=== PATIENT | male | born 1960 | race Caucasian/White ===

== ENCOUNTER 2024-03-17 21:54 | Inpatient (IN) | payer OTHER ==
[~2024-03-17] VITALS: Ht 172.7 cm; Wt 117.9 kg
[2024-03-17] MEDS ORDERED: TETANUS, DIPHTHERIA, PERTUSSIS VAC/PF 0.5ML (>10YR OLD) IM ONE (22:30)
[2024-03-18] VITALS (62 sets, daily range): BP systolic 120–168; BP diastolic 67–104; PULSE 61–88; RESP 15–30; TEMP 36.61404–37.2252; O2SAT 90–99
[2024-03-18] MEDS ORDERED: NICARDIPINE 40MG/200ML PREMIX 200 ML IV PRN (00:15)
[2024-03-18 00:36] LABS: BASOPHILS % 0.3 % (0.0-2.0); EOSINOPHILS % 0.1 % (0.0-5.0); HEMATOCRIT. 41.3 % (42.0-52.0); HEMOGLOBIN. 14.2 g/dL (14.0-18.0); LYMPHOCYTES % 7.2 % (20.0-50.0); MEAN CORPUSCULAR HEMOGLOBIN 29.5 pg (28.0-32.0); MEAN CORPUSCULAR HGB CONC 34.4 g/dL (31.0-37.0); MEAN CORPUSCULAR VOLUME 85.8 fL (80.0-94.0); MEAN PLATELET VOLUME 8.8 fl (7.4-10.4); NEUTROPHILS % 86.4 % (40.0-76.0); PLATELET 159 x1000/uL (130-400); RED BLOOD CELL COUNT 4.81 mill/uL (4.7-6.1); RED CELL DISTRIBUTION WIDTH 13.5 % (11.6-14.6); WHITE BLOOD COUNT 12.6 x1000/uL (4.5-11.0)
[2024-03-18 00:39] LABS: CHLORIDE 99 mEq/L (98-107); POTASSIUM 3.8 mEq/L (3.5-5.1); SODIUM 131 mEq/L (136-145)
[2024-03-18 00:40] LABS: CARBON DIOXIDE 25 mEq/L (21-32)
[2024-03-18 00:41] LABS: CALCIUM 8.6 mg/dL (8.7-10.4)
[2024-03-18 00:44] LABS: INR 0.9; PROTHROMBIN TIME 10.3 sec (9.6-11.0)
[2024-03-18 00:45] LABS: CREATININE 0.8 mg/dL (0.6-1.3); GLUCOSE 207 mg/dL (70-105)
[2024-03-18 00:46] LABS: ETHANOL BLOOD 225 mg/dL (<10); UREA NITROGEN BLOOD 12 mg/dL (9-23)
[2024-03-18 00:47] LABS: TROPONIN I HIGH SENSITIVITY 8 ng/L (3.0-53)
[2024-03-18] MEDS: ACETAMINOPHEN 325MG TABLET PO ONE (00:48)
[2024-03-18] MEDS ORDERED: MAGNESIUM/ALUMINUM HYDROXIDE/SIMETHICONE 30ML UDC PO PRN (01:15)
[2024-03-18] MEDS ORDERED: CLONIDINE 0.1MG TABLET PO PRN (01:15)
[2024-03-18] MEDS ORDERED: GUAIFENESIN 200MG/10ML SUGAR FREE UDC PO PRN (01:15)
[2024-03-18] MEDS ORDERED: ACETAMINOPHEN 325MG TABLET PO PRN ×2 (01:15)
[2024-03-18] MEDS ORDERED: ONDANSETRON HCL 4MG/2ML INJ IV PRN (01:15)
[2024-03-18] MEDS ORDERED: DEXTROSE 50% WATER 50ML SYRINGE IV PRN (01:15)
[2024-03-18] MEDS ORDERED: DOCUSATE SODIUM 100MG CAPSULE PO PRN (01:15)
[2024-03-18] MEDS ORDERED: IPRATROPIUM/ALBUTEROL 0.5-3(2.5)MG/3ML NEB HHN PRN (01:15)
[2024-03-18] MEDS: ACETAMINOPHEN 325MG TABLET PO NR (01:17)
[2024-03-18] MEDS: TETANUS, DIPHTHERIA, PERTUSSIS VAC/PF 0.5ML (>10YR OLD) IM ONE (01:17)
[2024-03-18] MEDS: NICARDIPINE 40MG/200ML PREMIX 200 ML IV PRN (01:26)
[2024-03-18] MEDS ORDERED: THIAMINE HCL 100MG TABLET PO SCH (01:30)
[2024-03-18] MEDS ORDERED: FOLIC ACID 1MG TABLET PO SCH (01:30)
[2024-03-18] MEDS: DEXT 5%/LACTATED RINGERS 1,000 ML IV SCH (03:16)
[2024-03-18] MEDS: LEVETIRACETAM 500MG PREMIX 100 ML IV SCH ×2 (03:16→20:24)
[2024-03-18 05:28] LABS: PHOSPHORUS 3.3 mg/dL (2.5-4.9)
[2024-03-18] MEDS: BLOOD SUGAR DIAGNOSTIC STRIP TEST SCH (05:40)
[2024-03-18] MEDS: INSULIN LISPRO 100 UNITS/ML SUBCUT SCH (06:48)
[2024-03-18] MEDS: NICARDIPINE 100 MG in SODIUM CHLORIDE 0.9% 60 ML IV PRN (06:50)
[2024-03-18] MEDS ORDERED: IOHEXOL-300 100 ML BOTTLE ONE ×2 (06:54→14:49)
[2024-03-18 08:07] LABS: CREATINE KINASE MB FRACTION 9.8 ng/mL (0.5-3.6)
[2024-03-18] MEDS: PANTOPRAZOLE SODIUM 40 MG/VIAL IV SCH (08:29)
[2024-03-18] MEDS: MORPHINE SULFATE 2 MG/ML INJ (NOT FOR IM USE) IV PRN (08:52)
[2024-03-18] MEDS ORDERED: LEVETIRACETAM 500MG in NACL 100ML PREMIX IV SCH (09:00)
[2024-03-18] MEDS ORDERED: LACTATED RINGERS 1,000 ML IV SCH (10:30)
[2024-03-18] MEDS ORDERED: LORAZEPAM 2MG/ML INJ IV PRN (10:30)
[2024-03-18] MEDS ORDERED: AMLO10TA80 PO (10:33)
[2024-03-18] MEDS: AMLODIPINE 10MG TABLET PO SCH (11:00)
[2024-03-18] MEDS ORDERED: HYDRALAZINE 20MG/ML VIAL IV PRN (11:30)
[2024-03-18] MEDS: HYDROCHLOROTHIAZIDE 25MG TABLET PO SCH (12:05)
[2024-03-18] MEDS: THIAMINE HCL 100 MG in SODIUM CHLORIDE 0.9% 49 ML IV SCH (12:05)
[2024-03-18] MEDS ORDERED: NALOXONE HCL 0.4MG/ML VIAL IV PRN (13:15)
[2024-03-18 16:19] LABS: CREATINE KINASE MB FRACTION 7.7 ng/mL (0.5-3.6)
[2024-03-19] VITALS (9 sets, daily range): BP systolic 142–165; BP diastolic 68–100; PULSE 60–69; RESP 12–21; TEMP 36.50292–36.78072; O2SAT 93–97
[2024-03-19 08:00] LABS: CALCIUM 8.8 mg/dL (8.7-10.4); CARBON DIOXIDE 27 mEq/L (21-32); CHLORIDE 104 mEq/L (98-107); POTASSIUM 3.8 mEq/L (3.5-5.1); SODIUM 137 mEq/L (136-145)
[2024-03-19 08:06] LABS: CREATININE 0.8 mg/dL (0.6-1.3); GLUCOSE 157 mg/dL (70-105)
[2024-03-19 08:07] LABS: CHOLESTEROL 167 mg/dL (<200); LDL CHOLESTEROL 99 mg/dL (5-100); THYROID STIMULATING HORMONE 0.83 uIU/mL (0.55-4.78); TRIGLYCERIDE 213 mg/dL (0-150); UREA NITROGEN BLOOD 11 mg/dL (9-23)
[2024-03-19 08:09] LABS: HDL CHOLESTEROL 49 mg/dL (>55)
[2024-03-19 08:11] LABS: BG CARBOXYHEMOGLOBIN 1.7 % (0.5-1.5); BG DEOXYHEMOGLOBIN 7.9 % (0.0-5.0); BG FRACTION INSPIRED OXYGEN 21; BG HCO3 ACT 28.1 mmol/L (21.0-28.0); BG METHEMOGLOBIN 0.3 % (0.5-1.5); BG OXYGEN SATURATION 91.9 % (94.0-98.0); BG OXYHEMOGLOBIN 90.1 % (94.0-98.0); BG PCO2 40.2 mmHg (35.0-48.0); BG PH 7.462 (7.350-7.450); BG SAMPLE SITE RIGHT RADIAL; BG TOTAL HEMOGLOBIN 13.7 g/dL (13.5-17.5); BG VENT MODE ROOM AIR
[2024-03-19 08:16] LABS: BASOPHILS % 0.6 % (0.0-2.0); EOSINOPHILS % 1.3 % (0.0-5.0); HEMATOCRIT. 37.9 % (42.0-52.0); HEMOGLOBIN. 13.2 g/dL (14.0-18.0); LYMPHOCYTES % 16.5 % (20.0-50.0); MEAN CORPUSCULAR HEMOGLOBIN 29.6 pg (28.0-32.0); MEAN CORPUSCULAR HGB CONC 34.8 g/dL (31.0-37.0); MEAN CORPUSCULAR VOLUME 85.2 fL (80.0-94.0); MEAN PLATELET VOLUME 9.3 fl (7.4-10.4); MONOCYTES % 11.7 % (2.0-8.0); NEUTROPHILS % 69.9 % (40.0-76.0); PLATELET 151 x1000/uL (130-400); RED BLOOD CELL COUNT 4.46 mill/uL (4.7-6.1); RED CELL DISTRIBUTION WIDTH 13.2 % (11.6-14.6); WHITE BLOOD COUNT 6.9 x1000/uL (4.5-11.0)
[2024-03-19] MEDS: THIAMINE HCL 100MG TABLET PO SCH (09:05)
[2024-03-19 15:22] LABS: ALANINE AMINOTRANSFERASE 17 IU/L (10-49); ALBUMIN 3.9 g/dL (3.2-4.8); ASPARTATE AMINOTRANSFERASE 42 IU/L (<34); BILIRUBIN DIRECT 0.3 mg/dL (<=3.0); BILIRUBIN TOTAL 1.2 mg/dL (0.1-1.0)
[2024-03-19 15:23] LABS: PROTEIN TOTAL 6.7 g/dL (6.0-8.3)
[2024-03-19] MEDS ORDERED: HYDR25TA PO ×2 (15:42→17:30)
[2024-03-19] MEDS ORDERED: FOLI-43 PO ×2 (15:42→17:30)
[2024-03-19] MEDS ORDERED: THIA100T72 PO ×2 (15:42→17:30)
[2024-03-19] MEDS ORDERED: IBUP-2029 MT (16:10)
[2024-03-19] MEDS ORDERED: IBUP-2028 PO (17:30)
[2024-03-19] MEDS ORDERED: AMLO10TA80 PO (17:30)
[2024-03-20] MEDS ORDERED: FAMOTIDINE 20MG/2ML VIAL IV SCH (09:00)
== END 2024-03-19 18:27 | disposition home or self-care (01) | DRG 85 ==
LOC: ER 21:54 → MICUSO 03-18 00:14 → EDBEDREQ 03-18 01:01 → EDBEDREQTM 03-18 01:01 → 5EST 03-18 17:50
PROVIDERS: ADMIT Internal Medicine; ATTEND Internal Medicine
DX: S06.350A Traumatic hemorrhage of left cerebrum without loss of consciousness, initial encounter (principal); G92.8 Other toxic encephalopathy; J96.01 Acute respiratory failure with hypoxia; S22.42XA Multiple fractures of ribs, left side, initial encounter for closed fracture; E87.1 Hypo-osmolality and hyponatremia; J93.9 Pneumothorax, unspecified; E66.01 Morbid (severe) obesity due to excess calories; D72.829 Elevated white blood cell count, unspecified; I10 Essential (primary) hypertension; K42.9 Umbilical hernia without obstruction or gangrene; R73.9 Hyperglycemia, unspecified; F10.929 Alcohol use, unspecified with intoxication, unspecified; Y90.7 Blood alcohol level of 200-239 mg/100 ml; W01.0XXA Fall on same level from slipping, tripping and stumbling without subsequent striking against object, initial encounter; Y93.89 Activity, other specified; Y92.89 Other specified places as the place of occurrence of the external cause; Y99.8 Other external cause status; Z68.39 Body mass index [BMI] 39.0-39.9, adult
CPT/HCPCS: 36415; 36600; 71045; 71101; 71260; 74177; 80048; 80061; 80076; 80320; 82375; 82550; 82553; 82805; 82962; 83036; 83735; 84100; 84145; 84439; 84443; 84484; 85025; 86850; 86900; 90715; 93005; 97162; 97166; 97535; 99291; J1815; J1953; J2270; J2470; J3411; J3490; J7050; Q9967; G0480